=== PATIENT | male | born 1955 | race Caucasian/White ===

== ENCOUNTER 2018-08-30 08:22 | Inpatient (IN) | payer OTHER ==
[2018-08-30] MEDS ORDERED: ACETAMINOPHEN 325 MG TAB PO (09:00)
[2018-08-30] MEDS ORDERED: ONDANSETRON 4 MG INJ IV (09:00)
[2018-08-30] MEDS ORDERED: NACL 0.9% 3 ML SYG IV (09:00)
[2018-08-30 10:16] LABS: ADD UMIC YES; UR ASCORBIC ACID NEGATIVE (NEGATIVE); UR BACTERIA FEW /HPF (NONE SEEN); UR BILIRUBIN (Dip) NEGATIVE (NEGATIVE); UR BLOOD (Dip) 2+ mg/dL (NEGATIVE); UR CLARITY CLOUDY (CLEAR); UR COLOR YELLOW (YELLOW); UR GLUCOSE (Dip) NEGATIVE (NEGATIVE); UR KETONES (Dip) TRACE mg/dL (NEGATIVE); UR LEUKOCYTE ESTERASE (Dip) 3+ Leu/ul (NEGATIVE); UR MUCUS FEW /HPF (NONE SEEN); UR NITRITE (Dip) POSITIVE (NEGATIVE); UR NONSQUAMOUS EPITHELIAL CELL 4 /HPF (NONE SEEN); UR RBC > 182 /HPF (0-5); UR SPECIFIC GRAVITY (Dip) 1.016 (1.003-1.030); UR TOTAL PROTEIN (Dip) 2+ mg/dl (NEGATIVE); UR UROBILINOGEN (Dip) NEGATIVE (NEGATIVE); UR WBC > 182 /HPF (0-5)
[2018-08-30] MEDS: CEFTRIAXONE 1 GM/50 ML (PMX) 50 ML IVPB (11:22)
[2018-08-30] MEDS: SOD CHLORIDE 0.9% 1,000 ML IV (11:22)
[2018-08-30] MEDS: SUCRALFATE (100 MG/ML) 10ML CUP PO ×3 (13:00→20:37)
[2018-08-30 14:18] LABS: ADD MAN DIFF? NO
[2018-08-30 14:19] LABS: WHITE BLOOD COUNT 18.6 10^3/ul (4.8-10.8)
[2018-08-30 14:19] LABS: BASOPHIL # 0.1 10^3/ul (0.0-0.1); BASOPHILS % 0.3 % (0.0-2.0); EOSINOPHILS % 0.2 % (0.0-7.0); HEMATOCRIT 41.9 % (42.0-52.0); HEMOGLOBIN 13.6 g/dl (14.0-18.0); LYMPHOCYTES # 1.9 10^3/ul (0.8-2.9); LYMPHOCYTES % 10.3 % (15.0-51.0); MEAN CORPUSCULAR HEMOGLOBIN 27.9 pg (29.0-33.0); MEAN CORPUSCULAR HGB CONC 32.5 g/dl (32.0-37.0); MEAN CORPUSCULAR VOLUME 85.9 fl (82.0-101.0); MEAN PLATELET VOLUME 9.4 fl (7.4-10.4); MONOCYTE # 1.1 10^3/ul (0.3-0.9); MONOCYTES % 5.9 % (0.0-11.0); NEUTROPHIL # 15.3 10^3/ul (1.6-7.5); NEUTROPHILS % 82.6 % (39.0-77.0); PLATELET COUNT 269 10^3/UL (140-415); RED BLOOD COUNT 4.88 10^6/ul (4.70-6.10); RED CELL DISTRIBUTION WIDTH 13.1 % (11.5-14.5)
[2018-08-30 14:36] LABS: ALANINE AMINOTRANSFERASE 62 IU/L (13-69); ALBUMIN/GLOBULIN RATIO 1.02; ALKALINE PHOSPHATASE 82 IU/L (42-121); ANION GAP 12 (5-13); ASPARTATE AMINO TRANSFERASE 48 IU/L (15-46); BILIRUBIN,INDIRECT 0.5 mg/dl (0-1.1); BILIRUBIN,TOTAL 0.5 mg/dl (0.2-1.3); BLOOD UREA NITROGEN 10 mg/dl (7-20); CALCIUM 9.2 mg/dl (8.4-10.2); CARBON DIOXIDE 25 mmol/L (21-31); CHLORIDE 98 mmol/L (97-110); CREATININE 0.76 mg/dl (0.61-1.24); Estimated GFR > 60 mL/min (>60); GLUCOSE 130 mg/dl (70-220); POTASSIUM 3.8 mmol/L (3.5-5.1); SODIUM 135 mmol/L (135-144); TOTAL PROTEIN 7.9 g/dl (6.1-8.1)
[2018-08-30] MEDS: PANTOPRAZOLE (EC) 40 MG TAB PO (16:42)
[2018-08-30] MEDS: HYDROCODONE/APAP (5/325) TAB PO (20:37)
[2018-08-31 05:00] LABS: ADD MAN DIFF? NO
[2018-08-31 05:08] LABS: BASOPHILS % 0.3 % (0.0-2.0); EOSINOPHILS # 0.2 10^3/ul (0.0-0.5); EOSINOPHILS % 1.4 % (0.0-7.0); HEMATOCRIT 39.1 % (42.0-52.0); HEMOGLOBIN 12.8 g/dl (14.0-18.0); LYMPHOCYTES # 1.1 10^3/ul (0.8-2.9); LYMPHOCYTES % 8.9 % (15.0-51.0); MEAN CORPUSCULAR HEMOGLOBIN 27.8 pg (29.0-33.0); MEAN CORPUSCULAR HGB CONC 32.7 g/dl (32.0-37.0); MEAN CORPUSCULAR VOLUME 84.8 fl (82.0-101.0); MEAN PLATELET VOLUME 9.2 fl (7.4-10.4); MONOCYTE # 0.9 10^3/ul (0.3-0.9); MONOCYTES % 7.4 % (0.0-11.0); NEUTROPHIL # 9.7 10^3/ul (1.6-7.5); NEUTROPHILS % 81.7 % (39.0-77.0); PLATELET COUNT 282 10^3/UL (140-415); RED BLOOD COUNT 4.61 10^6/ul (4.70-6.10); RED CELL DISTRIBUTION WIDTH 13.2 % (11.5-14.5)
[2018-08-31 05:08] LABS: WHITE BLOOD COUNT 11.8 10^3/ul (4.8-10.8)
[2018-08-31] MEDS: PANTOPRAZOLE (EC) 40 MG TAB PO ×2 (05:31→18:17)
[2018-08-31 05:37] LABS: ALANINE AMINOTRANSFERASE 59 IU/L (13-69); ALBUMIN 3.5 g/dl (3.3-4.9); ALBUMIN/GLOBULIN RATIO 0.97; ALKALINE PHOSPHATASE 79 IU/L (42-121); ANION GAP 9 (5-13); ASPARTATE AMINO TRANSFERASE 36 IU/L (15-46); BILIRUBIN,INDIRECT 0.4 mg/dl (0-1.1); BILIRUBIN,TOTAL 0.4 mg/dl (0.2-1.3); BLOOD UREA NITROGEN 11 mg/dl (7-20); CALCIUM 8.9 mg/dl (8.4-10.2); CARBON DIOXIDE 27 mmol/L (21-31); CHLORIDE 100 mmol/L (97-110); CHOL/HDL RATIO 3.4 RATIO; CHOLESTEROL 143 mg/dl (100-200); CREATININE 0.67 mg/dl (0.61-1.24); Estimated GFR > 60 mL/min (>60); GLUCOSE 99 mg/dl (70-220); HDL CHOLESTEROL 42 mg/dl (30-78); LDL CHOLESTEROL,CALCULATED 87 mg/dl; MAGNESIUM 2.2 mg/dl (1.7-2.5); POTASSIUM 3.8 mmol/L (3.5-5.1); SODIUM 136 mmol/L (135-144); TOTAL PROTEIN 7.1 g/dl (6.1-8.1); TRIGLYCERIDES 72 mg/dl (0-149)
[2018-08-31 06:02] LABS: THYROID STIMULATING HORMONE 0.438 MIU/L (0.465-4.680)
[2018-08-31 06:27] LABS: HEMOGLOBIN A1C 5.5 % (0-5.9)
[2018-08-31] MEDS: LEVETIRACETAM 500 MG TAB PO (08:22)
[2018-08-31] MEDS: SUCRALFATE (100 MG/ML) 10ML CUP PO ×4 (08:23→22:24)
[2018-08-31] MEDS: SOD CHLORIDE 0.9% 1,000 ML IV ×2 (08:53→11:41)
[2018-08-31] MEDS: CEFTRIAXONE 1 GM/50 ML (PMX) 50 ML IVPB (11:40)
[2018-08-31 18:47] LABS: HEMATOCRIT 46.4 % (42.0-52.0); HEMOGLOBIN 14.7 g/dl (14.0-18.0)
[2018-09-01 01:15] LABS: HEMOGLOBIN 12.9 g/dl (14.0-18.0)
[2018-09-01] MEDS: HYDROCODONE/APAP (5/325) TAB PO (01:23)
[2018-09-01] MEDS: PANTOPRAZOLE (EC) 40 MG TAB PO (05:28)
[2018-09-01 06:08] LABS: ADD MAN DIFF? NO
[2018-09-01 06:15] LABS: BASOPHILS % 0.5 % (0.0-2.0); EOSINOPHILS # 0.1 10^3/ul (0.0-0.5); HEMATOCRIT 40.3 % (42.0-52.0); HEMOGLOBIN 13.3 g/dl (14.0-18.0); LYMPHOCYTES % 16.6 % (15.0-51.0); MEAN CORPUSCULAR HEMOGLOBIN 27.6 pg (29.0-33.0); MEAN CORPUSCULAR VOLUME 83.6 fl (82.0-101.0); MEAN PLATELET VOLUME 9.5 fl (7.4-10.4); MONOCYTE # 0.5 10^3/ul (0.3-0.9); MONOCYTES % 8.8 % (0.0-11.0); NEUTROPHIL # 4.2 10^3/ul (1.6-7.5); NEUTROPHILS % 72.9 % (39.0-77.0); PLATELET COUNT 294 10^3/UL (140-415); RED BLOOD COUNT 4.82 10^6/ul (4.70-6.10); RED CELL DISTRIBUTION WIDTH 13.1 % (11.5-14.5)
[2018-09-01 06:15] LABS: WHITE BLOOD COUNT 5.8 10^3/ul (4.8-10.8)
[2018-09-01 06:42] LABS: ANION GAP 10 (5-13); BLOOD UREA NITROGEN 11 mg/dl (7-20); CALCIUM 9.1 mg/dl (8.4-10.2); CARBON DIOXIDE 26 mmol/L (21-31); CHLORIDE 99 mmol/L (97-110); Estimated GFR > 60 mL/min (>60); GLUCOSE 101 mg/dl (70-220); MAGNESIUM 2.2 mg/dl (1.7-2.5); PHOSPHORUS 4.3 mg/dl (2.5-4.9); POTASSIUM 3.5 mmol/L (3.5-5.1); SODIUM 135 mmol/L (135-144)
[2018-09-01] MEDS: LEVETIRACETAM 500 MG TAB PO (09:17)
[2018-09-01] MEDS: SUCRALFATE (100 MG/ML) 10ML CUP PO ×2 (09:17→13:00)
[2018-09-01] MEDS: CEFTRIAXONE 1 GM/50 ML (PMX) 50 ML IVPB (11:37)
== END 2018-09-01 17:00 | disposition home or self-care (01) | DRG 690 ==
LOC: MS1 08-31 20:25
DX: N39.0 Urinary tract infection, site not specified (principal); K40.90 Unilateral inguinal hernia, without obstruction or gangrene, not specified as recurrent; R19.6 Halitosis; K59.00 Constipation, unspecified; Z86.73 Personal history of transient ischemic attack (TIA), and cerebral infarction without residual deficits
CPT/HCPCS: 80048; 80053; 80061; 81001; 83036; 83735; 84100; 84443; 85014; 85018; 85025; 87040-91; 87081; 87086